=== PATIENT | female | born 1950 | race Caucasian/White ===

== ENCOUNTER → 2018-09-23 07:30 | Outpatient (CLI) | payer MEDICARE, BC, SELFPAY ==
[2018-09-25 19:55] LABS: Giardia lamblia Ag, EIA Negative (Negative)
[2018-09-27 08:56] LABS: Cryptosporidium, EIA Negative (Negative)
== END ==
PROVIDERS: Visit Provider Internal Medicine Gastroenterology
DX: R19.7 Diarrhea, unspecified (principal)
CPT/HCPCS: 87207; 87324; 87328

== ENCOUNTER → 2020-10-08 09:39 | Outpatient (CLI) | payer MEDICARE, BC, SELFPAY ==
[2020-10-08 14:15] LABS: C-Reactive Protein 0.5 mg/L (0-4)
[2020-10-08 16:24] LABS: Erythrocyte Sedimentation Rate 17 mm/hr (0-30)
== END ==
PROVIDERS: Visit Provider Physical Medicine & Rehabilitation
DX: G44.89 Other headache syndrome (principal)
CPT/HCPCS: 36415; 85651; 86140

== ENCOUNTER 2021-08-19 09:00 | Outpatient (RCR) | payer MEDICARE, BC, SELFPAY | END 2021-08-30 09:51 | disposition home or self-care (01) | LOC: PT.CARL 09:00 | PROVIDERS: Visit Provider Orthopaedic Surgery | DX: M25.562 Pain in left knee (principal); S82.002D Unspecified fracture of left patella, subsequent encounter for closed fracture with routine healing | CPT/HCPCS: 97010; 97014; 97110; 97163; G0283 ==